=== PATIENT | female | born 1950 | race Caucasian/White ===

== ENCOUNTER 2017-03-06 19:40 | Emergency (ER) | payer SELFPAY ==
[~2017-03-06] VITALS: Ht 162.6 cm; Wt 77.7 kg
[2017-03-06 19:45] VITALS: BP 164/65; PULSE 95; RESP 22; TEMP 101.5; O2SAT 93
[2017-03-06 20:09] VITALS: BP 155/74; PULSE 92; RESP 18; O2SAT 95
[2017-03-06] MEDS ORDERED: EFFE150C PO (20:17)
[2017-03-06] MEDS ORDERED: CLOR3.755 PO (20:18)
[2017-03-06] MEDS ORDERED: PROZ20CA11 PO (20:18)
[2017-03-06] MEDS ORDERED: AMIT10TA6 PO (20:20)
[2017-03-06] MEDS ORDERED: AMBI10TA PO (20:20)
== END 2017-03-06 20:53 | disposition left against medical advice (07) ==
LOC: PHED 19:40
DX: Z53.21 Procedure and treatment not carried out due to patient leaving prior to being seen by health care provider (principal)
CPT/HCPCS: 99281